=== PATIENT | female | born 1995 | race Caucasian/White ===

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

== ENCOUNTER 2017-09-03 22:07 | Emergency (ER) | payer BC, MEDICAID ==
[2017-09-03 23:49] VITALS: BP 135/76
--- NOTE | 2017-09-04 00:16 | EDM.PDOC ---
ED HPI GENERAL MEDICAL PROBLEM - General Chief Complaint: General Stated Complaint: UTI/VOMITING BLOOD Time Seen by Provider: 09/04/17 00:03 Source of Information: Reports: Patient, Family, RN Notes Reviewed History Limitations: Reports: No Limitations - History of Present Illness INITIAL COMMENTS - FREE TEXT/NARRATIVE: 21-year-old female presents emergency department with complaint of burning with urination is been going on for a couple days she also has suprapubic tenderness and blood in her urine, she did have an event where she had emesis so hard she had a couple of drops of blood in her emesis this is the second time she's had an event similar to this Lower Abdominal Pain Score (Numeric/FACES): 3 - Related Data Allergies Allergy/AdvReac Type Severity Reaction Status Date / Time albuterol Allergy Nausea and Verified 09/03/17 23:40 Vomiting Home Meds: Home Meds *Anxiety Med 1 tab PO BID 09/03/17 [History] *Depression Med 1 tab PO DAILY 09/03/17 [History] Past Medical History HEENT History: Reports: Impaired Vision Cardiovascular History: Reports: Hypertension Respiratory History: Reports: Asthma 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[employer] History: Reports: Neurological History: Reports: Concussion Psychiatric History: Reports: Anxiety, Depression, Panic Attack Endocrine/Metabolic History: Reports: Diabetes, Gestational - Past Surgical History Female Surgical History: Reports: Section Social & Family History - Tobacco Use Smoking Status *Q: Current Every Day Smoker Years of Tobacco use: 1 Packs/Tins Daily: 0.5 - Caffeine Use Caffeine Use: Reports: Coffee - Recreational Drug Use Recreational Drug Use: No - Living Situation & Occupation Living situation: Reports: Single, with Family Occupation: Student ED ROS GENERAL - Review of Systems Review Of Systems: See Below Constitutional: Reports: No Symptoms HEENT: Reports: No Symptoms Respiratory: Reports: No Symptoms Cardiovascular: Reports: No Symptoms GI/Abdominal: Reports: Vomiting : Reports: Dysuria, Hematuria ED EXAM, GENERAL - Physical Exam Exam: See Below Exam Limited By: No Limitations General Appearance: Alert, WD/WN, No Apparent Distress GI/Abdominal: Soft, Tender (Suprapubic area) Back Exam: No: CVA Tenderness (R), CVA Tenderness (L) Course - Vital Signs Last Recorded V/S: Last Vital Signs Temp 98.0 F 09/03/17 23:48 Pulse 86 09/03/17 23:48 Resp 16 09/03/17 23:48 BP 135/76 09/03/17 23:48 Pulse Ox 98 09/03/17 23:48 - Orders/Labs/Meds Orders: Active Orders 24 hr Category Date Time Status CULTURE URINE [RM] Urgent Lab 09/04/17 00:03 Ordered UA W/MICROSCOPIC [URIN] Urgent Lab 09/03/17 23:24 Ordered Labs: Laboratory Tests 09/03/17 Range/Units 23:24 Urine Color Yellow Urine Appearance Cloudy Urine pH 5.0 (4.5-8.0) Ur Specific [place] 1.020 (1.008-1.030) Urine Protein 30 H (NEGATIVE) mg/dL Urine Glucose (UA) Normal (NEGATIVE) mg/dL Urine Ketones Negative (NEGATIVE) mg/dL Urine Occult Blood Large (NEGATIVE) Urine Nitrite Negative (NEGATIVE) Urine Bilirubin Negative (NEGATIVE) Urine Urobilinogen Normal (NORMAL) mg/dL Ur Leukocyte Esterase Moderate (NEGATIVE) Urine RBC >100 H (0-5) Urine WBC 20-30 H (0-5) Ur Epithelial Cells Moderate Amorphous Sediment Not seen Urine Bacteria Moderate Urine Mucus Not seen Departure - Departure Time of Disposition: 00:15 Disposition: Home, Self-Care 01 Condition: Good Clinical Impression: UTI, Urinary tract infectious disease - Discharge Information Referrals: PCP,None [Primary Care Provider] - Additional Instructions: Take full course of antibiotics, use Pyridium for the next 2 days to help with burning with urination, please follow-up with your primary care in the next 3-5 days for reevaluation also discussed the history of vomiting blood, call or return to the emergency department worsening of symptoms - My Orders Last 24 Hours: My Active Orders 09/03/17 23:24 UA W/MICROSCOPIC [URIN] Urgent 09/04/17 00:03 CULTURE URINE [RM] Urgent - Assessment/Plan Last 24 Hours: My Active Orders 09/03/17 23:24 UA W/MICROSCOPIC [URIN] Urgent 09/04/17 00:03 CULTURE URINE [RM] Urgent Plan: Assessment Acuity = acute Site and laterality = urinary tract infection Etiology = probable bacterial cause Manifestations = hematuria Location of injury = Home Lab values = greater than 100 rbc's consistent hematuria and 20-30 WBCs consistent with pyuria in the urine Plan Elected treat with Bactrim DS 1 tablet by mouth twice a day 3 days, peridium 1 tablet 200 mg by mouth 3 times a day when necessary for 2 days for pain control culture pending follow-up with primary care 3-5 days if not better also follow- up with primary care for 2 events of hematoemesis This note was dictated using [employer] voice recognition software please call with any questions on syntax or grammar.
== END 2017-09-04 00:24 | disposition home or self-care (01) ==
LOC: JP.ED 22:07
DX: N39.0 Urinary tract infection, site not specified (principal); I10 Essential (primary) hypertension; J45.909 Unspecified asthma, uncomplicated; F17.210 Nicotine dependence, cigarettes, uncomplicated; Z88.8 Allergy status to other drugs, medicaments and biological substances; Z79.899 Other long term (current) drug therapy
CPT/HCPCS: 81001; 87086; 87088; 87186; 99283; 99284